=== PATIENT | female | born 1935 | race Caucasian/White ===

== ENCOUNTER 2020-01-12 22:00 | Emergency (ER) | payer MEDICARE, OTHER ==
[~2020-01-12] VITALS: Ht 167.6 cm; Wt 71.0 kg
[2020-01-12 22:12] VITALS: BP 151/85
[2020-01-12] MEDS ORDERED: L.E.T SOLUTION TP ONE (22:41)
[2020-01-12] MEDS ORDERED: NEOSPORIN OINT. PKT 1 PACKET ONE (22:59)
[2020-01-12] MEDS ORDERED: DIPH,PERTUSS(ACELL),TET VAC/PF 0.5 ML IM-VACC ONE ×2 (23:00→23:04)
--- NOTE | 2020-01-12 23:24 | NUR ---
Pt fell on stairs at [place]. has small laceration on posterior aspect of skull. wound cleaned and dressed with neomycin.
--- NOTE | 2020-01-12 23:28 | NUR ---
Pt medicated with tdap
--- NOTE | 2020-01-12 23:58 | NUR ---
Usman lino in [facility] - 01/12/20 at 2359 by [email or web address] Patient/Caregiver given discharge instructions and they have confirmed that they understand the instructions. Patient ambulatory with steady gait.
--- NOTE | 2020-01-12 23:59 | NUR ---
Patient/Caregiver given discharge instructions and they have confirmed that they understand the instructions. Patient ambulatory with steady gait.
== END 2020-01-13 00:03 ==
LOC: ED 22:30
DX: S06.0X0A Concussion without loss of consciousness, initial encounter (principal); S01.01XA Laceration without foreign body of scalp, initial encounter; E78.5 Hyperlipidemia, unspecified; W18.30XA Fall on same level, unspecified, initial encounter; Y93.89 Activity, other specified; Y92.59 Other trade areas as the place of occurrence of the external cause; Y99.8 Other external cause status
CPT/HCPCS: 70450; 90471; 90715; 99284